=== PATIENT | male | born 1980 | race Caucasian/White ===

== ENCOUNTER 2018-01-15 16:14 | Emergency (ER) | payer SELFPAY ==
[~2018-01-15 16:14] MED LIST: LORTA5 PO
[2018-01-15 16:15] VITALS: BP 131/86; PULSE 76; RESP 16; TEMP 99; O2SAT 99
--- NOTE | 2018-01-15 17:14 | PD ---
HPI Chief Complaint: Routine medical exam Time Seen by Provider: 16:51 Travel History International Travel<30 days: No Contact w/Intl Traveler<30days: No Traveled to known affect area: No History of Present Illness HPI 37yo M with no PMH presents to the ED just to make sure everything is ok. Pt said he has been feeling sick for 3 days. Said he had vomiting and some abdominal discomfort that had resolved. Said he had fever yesterday. Pt has also been feeling tire a lot lately but said he works 60 hours a week and thinks that may be work related. Denies any chest pain, sob, current nausea, vomiting or abdominal pain. Denies any focal weakness or numbness. PFSH Past Medical History Asthma: Yes (as a child) Past Surgical History Surgical History: No Previous Surgery Social History Alcohol Use: No Tobacco Use: No (vapor) Substance Use: No Allergies-Medications (Allergen,Severity, Reaction): Coded Allergies: cefaclor (Verified Allergy, Unknown, Rash, 01/15/18) Reported Meds & Prescriptions Reported Meds & Active Scripts Active No Active Prescriptions or Reported Medications Review of Systems Except as stated in HPI: all other systems reviewed are Neg Physical Exam Narrative GENERAL: 37yo M not in distress. SKIN: Focused skin assessment warm/dry. HEAD: Atraumatic. Normocephalic. EYES: Pupils equal and round. No scleral icterus. No injection or drainage. ENT: No nasal bleeding or discharge. Mucous membranes pink and moist. NECK: Trachea midline. No JVD. CARDIOVASCULAR: Regular rate and rhythm. No murmur appreciated. RESPIRATORY: No accessory muscle use. Clear to auscultation. Breath sounds equal bilaterally. GASTROINTESTINAL: Abdomen soft, non-tender, nondistended. MUSCULOSKELETAL: No obvious deformities. No clubbing. No cyanosis. No edema. NEUROLOGICAL: Awake and alert. No obvious cranial nerve deficits. Motor grossly within normal limits in all extremities. Sensation intact. Normal speech. PSYCHIATRIC: Appropriate mood and affect; insight and judgment normal. Data Data Last Documented VS Vital Signs Date Time Temp Pulse Resp B/P (MAP) Pulse Ox O2 Delivery O2 Flow Rate FiO2 01/15/18 16:41 16 01/15/18 16:15 99.0 76 131/86 (101) 99 Orders Orders Basic Metabolic Panel (Bmp) (01/15/18 17:09) Magnesium (Mg) (01/15/18 17:09) Thyroid Stimulating Hormone (01/15/18 17:09) Ed Discharge Order (01/15/18 18:42) Labs Laboratory Tests Test 01/15/18 17:26 Blood Urea Nitrogen 15 MG/DL Creatinine 1.10 MG/DL Random Glucose 94 MG/DL Calcium Level 9.3 MG/DL Magnesium Level 2.4 MG/DL Sodium Level 140 MEQ/L Potassium Level 3.7 MEQ/L Chloride Level 104 MEQ/L Carbon Dioxide Level 28.8 MEQ/L Anion Gap 7 MEQ/L Estimat Glomerular Filtration Rate 75 ML/MIN Thyroid Stimulating Hormone 3rd Gen 1.020 uIU/ML MDM Medical Decision Making Medical Screen Exam Complete: Yes Emergency Medical Condition: Yes Differential Diagnosis Dehydration vs. electrolyte abnormality vs. hypothyroidism Narrative Course 37yo M with c/o nausea and vomiting that has resolved. Pt is very well appearing. BMP unremarkable. Checked TSH since pt said he has been having a lot of fatigue and it is normal. Vital signs stable. Pt given food and said he feels good. Tolerating PO. Return precautions given. Diagnosis Primary Impression: Routine medical exam Patient Instructions: General Instructions Departure Forms: Tests/Procedures Additional Instructions: Please follow up with your primary care physician in 2-3 days. Return precautions given. Med/Other Pt SpecificInfo: No Change to Meds Scripts No Active Prescriptions or Reported Meds Disposition: 01 DISCHARGE HOME Condition: Stable ToniCaridadEvi DO January 15, 2018 17:13
[2018-01-15 18:08] LABS: CALCIUM 9.3 MG/DL (8.5-10.1)
[2018-01-15 18:09] LABS: BICARBONATE 28.8 MEQ/L (21.0-32.0); MAGNESIUM 2.4 MG/DL (1.5-2.5)
[2018-01-15 18:12] LABS: CREATININE 1.1 MG/DL (0.60-1.30)
[2018-01-15 19:00] VITALS: BP 116/78
== END 2018-01-15 19:05 | disposition home or self-care (01) ==
LOC: PHED 16:14
DX: Z00.00 Encounter for general adult medical examination without abnormal findings (principal)
CPT/HCPCS: 80048; 83735; 84443; 99283